=== PATIENT | female | born 1975 | race Hispanic/Latino ===

== ENCOUNTER 2022-05-31 19:34 | Observation (INO) | payer OTHER ==
[2022-05-31] MEDS ORDERED: Ondansetron PF 4 MG/2 ML Vial ONE (20:15)
[2022-05-31] MEDS ORDERED: Ketorolac Tromethamine 30 MG/ML VIAL ONE (20:15)
[2022-05-31] MEDS ORDERED: Morphine 4 MG/ML VIAL ONE (20:15)
[2022-05-31 20:31] LABS: #Basophils 0.1 thou/uL (0.0-0.2); #Eosinphils 0.2 thou/uL (0.0-0.7); #Lymphocytes 2.6 thou/uL (1.20-3.40); #Monocytes 0.9 thou/uL (0.11-0.59); #Neutrophils 11.6 thou/uL (1.40-6.50); %Basophils 0.3 % (0.0-1.0); %Eosinophils 1.2 % (0.0-10.0); %Monocytes 5.6 % (0.0-10.0); %Neutrophils 75.8 % (42.0-75.0); Hemoglobin 14.9 g/dL (12.0-16.0); Mean Corpuscular HGB CONC 34.6 g/dL (32.0-36.0); Mean Corpuscular Hemoglobin 30.4 pg (27.0-31.0); Mean Corpuscular Volume 87.9 fl (78.0-98.0); Mean Platelet Volume 9.8 fL (7.4-10.4); Platelet Count 258 10x3/uL (130-400); RBC Distribution Width 11.8 % (11.5-14.5); Red Blood Cell (RBC) Count 4.91 mill/uL (4.20-5.40); White Blood Cell (WBC) Count 15.3 10x3/uL (4.8-10.8)
[2022-05-31 20:53] LABS: ALT (SGPT) 43 U/L (8-55); AST (SGOT) 95 U/L (5-34); Alkaline Phosphatase 146 U/L (40-110); Anion Gap 16 mmol/L (10-20); BUN (Urea Nitrogen) 12 mg/dL (7.0-18.7); Bilirubin, Total 0.5 mg/dL (0.2-1.2); Calc. Creatinine Clearance 0 mL/min (70-130); Calcium 10.1 mg/dL (7.8-10.44); Carbon Dioxide 24 mmol/L (22-29); Chloride 104 mmol/L (98-107); Estimated GFR 93; Globulin 3.3 g/dL (2.4-3.5); Glucose 96 mg/dL (70-105); Lipase 80 U/L (8-78); Potassium 3.4 mmol/L (3.5-5.1); Protein, Total 8.3 g/dL (6.0-8.3); Sodium 141 mmol/L (136-145)
[2022-06-01] MEDS ORDERED: Morphine 4 MG/ML VIAL SLOW IVP PRN ×2 (00:02→13:04)
[2022-06-01] MEDS ORDERED: Ketorolac Tromethamine 30 MG/ML VIAL IVP PRN (00:03)
[2022-06-01] MEDS: Sodium Chloride 0.9% 1,000 ML IV SCH ×2 (00:43→08:53)
[2022-06-01 02:58] VITALS: BMI 22.1
[2022-06-01] MEDS ORDERED: Ondansetron PF 4 MG/2 ML Vial IVP PRN (07:26)
[2022-06-01] MEDS ORDERED: Pantoprazole 40 MG VIAL IVP SCH (09:00)
[2022-06-01] MEDS ORDERED: fentaNYL PF 100 MCG/2 ML SYRINGE ONE (11:03)
[2022-06-01] MEDS ORDERED: Bupivacaine/Epinephrine 0.25% 30 ML VIAL ONE (11:03)
[2022-06-01] MEDS ORDERED: Sodium Chloride 0.9% 100 ML ONE (11:53)
[2022-06-01] MEDS ORDERED: cefOXitin 2 GM VIAL ONE (11:53)
[2022-06-01] MEDS ORDERED: Midazolam HCl 2 mg/2 ml Vial ONE (11:58)
[2022-06-01] MEDS ORDERED: GLYCOPYRROLATE/PF 0.2 MG/ML VIAL ONE (12:14)
[2022-06-01] MEDS ORDERED: Ketorolac Tromethamine 30 MG/ML VIAL ONE (12:14)
[2022-06-01] MEDS ORDERED: Rocuronium Bromide 10 MG/ML (10ML VIAL) ONE (12:14)
[2022-06-01] MEDS ORDERED: Succinylcholine Chloride 100 MG/5 ML SYRINGE FS ONE (12:14)
[2022-06-01] MEDS ORDERED: NEOSTIGMINE 3 MG/3 ML SYR 3 MG/3 ML SYRINGE ONE (12:14)
[2022-06-01] MEDS ORDERED: Ondansetron PF 4 MG/2 ML Vial ONE (12:14)
[2022-06-01] MEDS ORDERED: Dexamethasone 20 MG/5 ML VIAL ONE (12:14)
[2022-06-01] MEDS ORDERED: PROPOFOL 200 MG/20 ML VIAL ONE (12:14)
[2022-06-01] MEDS ORDERED: HYDROcodone/Acetaminophen 7.5/325 mg Tablet PO PRN (13:04)
[2022-06-01] MEDS ORDERED: Promethazine HCl 25 MG/ML VIAL IM PRN (13:08)
[2022-06-01] MEDS ORDERED: Ondansetron HCl/PF 4 MG/2 ML Vial IVP PRN (13:08)
[2022-06-01] MEDS ORDERED: fentaNYL 50 mcg/mL 1 mL Vial ONE ×2 (13:21→13:34)
[2022-06-01 16:08] VITALS: BP 118/62; TEMP 96.8
== END 2022-06-01 18:32 | disposition home or self-care (01) ==
LOC: ERS 19:34 → SURG A 22:44 → EEVIPCON 22:44
PROVIDERS: ADMIT Surgery; ATTEND Surgery
PROC: 0FT44ZZ Resection of Gallbladder, Percutaneous Endoscopic Approach (ICD-10-PCS; principal; 2022-06-01)
PROC: 8E0W8CZ Robotic Assisted Procedure of Trunk Region, Via Natural or Artificial Opening Endoscopic (ICD-10-PCS; 2022-06-01)
DX: K80.12 Calculus of gallbladder with acute and chronic cholecystitis without obstruction (principal)
CPT/HCPCS: 76705; 80053; 83690; 85025; 88304; 93005; 96361; 96374; 96375; 96376; C1776; C9113; G0378; J0694; J1885; J2250; J2270; J2405; J3010; J3490; J7050